=== PATIENT | male | born 1995 | race Caucasian/White ===

== ENCOUNTER 2016-04-05 18:40 | Emergency (ER) | payer OTHER ==
[2016-04-05 20:50] LABS: HEMOGLOBIN 11.3 gm/dl (14.0-17.5); RED BLOOD COUNT 3.74 M/UL (4.20-5.50); WHITE BLOOD COUNT 10.2 K/UL (4.5-11.0)
[2016-04-05 21:18] LABS: BUN/CREATININE RATIO 14 (0-10)
== END 2016-04-06 02:00 | disposition home or self-care (01) ==
LOC: ER1 18:40
PROVIDERS: Student in an Organized Health Care Education/Training Program
DX: G89.18 Other acute postprocedural pain (principal); M79.662 Pain in left lower leg; F17.210 Nicotine dependence, cigarettes, uncomplicated
CPT/HCPCS: 36415; 73564; 73590; 73610; 80053; 83605; 85025; 85610; 85730; 87040; 96361; 96374; 96375; 96376; 99283; J2270; J2405; J2550